=== PATIENT | male | born 1950 | race Caucasian/White ===

== ENCOUNTER 2016-11-23 14:18 | Emergency (ER) | payer MEDICARE ==
--- NOTE | 2016-11-23 14:44 | ERPHSYRPT ---
- History of Present Illness Time Seen by Provider: 11/23/16 14:44 Exam Limitations: no limitations Patient Subjective Stated Complaint: PT BROUGHT TO ED PER EMS FROM LOCAL [place]- REPORTS PT HAD FEVER OF 103 THIS AM WITH RIGHT FLANK PAIN-GIVEN TYLENOL-TEMP CURRENTLY 100.1-PT STATES THAT PAIN IS NOW GONE FROM RIGHT FLANK-DENIES N/V/D- STATES HE HAS HAD A LOT OF RECENT FALLS BUT DENIES INJURY-DENIES REBOUND TENDERNESS Triage Nursing Assessment: PT PALE WARM ET [id number] ALL QUESTIONS CORRECTLY-RESP EASY ET NONLABORED-ABD SOFT ET NONTENDER TO PALP-DENIES REBOUND TENDERNESS Physician History: The patient is a 65-year-old male brought in by EMS from a local jail where he stated that he began not feeling well when he was at physical therapy this morning. He went back to his room. The nurses took his temperature and it was around 102. He also had some epigastric right upper quadrant abdominal pain that began but went away after they gave him 2 Tylenols. He is now pain- free. He denies nausea vomiting or diarrhea. His past medical history is significant for hypertension and pulmonary hypertension. 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 Associated Symptoms: abdominal pain Allergies/Adverse Reactions: penicillin G Allergy (Intermediate, Verified 11/23/16 14:31) Sulfa (Sulfonamide Antibiotics) Allergy (Intermediate, Verified 11/23/16 14:31) Home Medications: Apixaban [Eliquis] 5 mg PO BID 11/23/16 [History] Furosemide 20 mg [Lasix 20 mg] 20 mg PO BID 11/23/16 [History] Gabapentin [Neurontin] 300 mg PO TID 11/23/16 [History] Metoprolol Succinate 50 mg [Toprol Xl 50 MG] 50 mg PO DAILY 11/23/16 [ History] Morphine Sulfate Cr 30 mg [Ms Contin 30 mg] 30 mg PO BID 11/23/16 [History ] Potassium Chloride 10 Meq Tab* [Klor Con 10 MEQ] 10 meq PO DAILY 11/23/16 [ History] Ranolazine 500 MG [Ranexa 500 MG] 500 mg PO BID 11/23/16 [History] Sertraline HCl 50 mg [Zoloft 50 mg Tablet] 50 mg PO DAILY 11/23/16 [History] Sildenafil Citrate [Sildenafil] 20 mg PO TID 11/23/16 [History] Hx Tetanus, Diphtheria Vaccination/Date Given: No Hx Influenza Vaccination/Date Given: Yes Hx Pneumococcal Vaccination/Date Given: No Immunizations Up to Date: Yes - Review of Systems Constitutional: Fever Eyes: No Symptoms Ears, Nose, & Throat: No Symptoms, No Throat Pain Respiratory: No Cough, No Dyspnea Cardiac: No Chest Pain, No Edema, No Syncope Abdominal/Gastrointestinal: Abdominal Pain Genitourinary Symptoms: No Dysuria Musculoskeletal: No Back Pain, No Neck Pain Skin: No Rash Neurological: No Dizziness, No Focal Weakness, No Sensory Changes Psychological: No Symptoms Endocrine: No Symptoms Hematologic/Lymphatic: No Symptoms Immunological/Allergic: No Symptoms All Other Systems: Reviewed and Negative - Past Medical History Pertinent Past Medical History: Yes Cardiac History: Congestive Heart Failure, Hypertension Respiratory History: COPD Psycho-Social History: Depression - Past Surgical History Past Surgical History: Yes Gastrointestinal: Appendectomy, Cholecystectomy - Social History Smoking Status: Former smoker Drug Use: none Patient Lives Alone: No - Nursing Vital Signs Nursing Vital Signs: Initial Vital Signs Temperature 100.1 F Temperature Source Oral Pulse Rate 67 Respiratory Rate 16 Blood Pressure [Right Arm] 100/56 Pain Intensity 0 - Physical Exam General Appearance: no apparent distress, alert Eye Exam: PERRL/EOMI ENT Exam: normal ENT inspection, No pharyngeal erythema, No tonsillar exudate Neck Exam: supple, full range of motion, No meningismus Respiratory Exam: normal breath sounds, lungs clear, no respiratory distress Cardiovascular/Chest Exam: normal heart sounds, regular rate/rhythm, No murmur, No edema Gastrointestinal/Abdominal Exam: soft, non tender, no distention, No tenderness Rectal Exam: not done Extremity Exam: non-tender, normal range of motion, normal inspection, normal capillary refill Neurologic Exam: alert, oriented x 3, cooperative, block layer II-XII nml as tested, normal mood/affect, sensation nml, No motor deficits Skin Exam: normal color, warm, dry, No rash SpO2 Interpretation: normal SpO2: 93 Oxygen Delivery: Nasal Cannula - CT Exams Abdomen/Pelvis CT Interpretation: Tele-radiologist Report, Pneumonia (infiltrates in lower right and left lungs per Dr Neil.) Ordered Tests: Active Orders 24 hr Category Date Time Status IV Insertion STAT Care 11/23/16 14:47 Active ABDOMEN AND PELVIS W/0 CONTRAS [CT] Stat Exams 11/23/16 16:03 Taken BMP Stat Lab 11/23/16 14:59 Completed CBC W DIFF Stat Lab 11/23/16 14:59 Completed CULTURE, THROAT Stat Lab 11/23/16 14:59 Received Lactic Acid Stat Lab 11/23/16 15:35 Completed Manual Differential NC Stat Lab 11/23/16 14:59 Completed STREP SCREEN-BETA A Stat Lab 11/23/16 14:59 Completed UA W/ MICROSCOPIC Stat Lab 11/23/16 15:45 Completed Lab/Rad Data: Laboratory Result Diagrams 11/23/16 14:59 11/23/16 14:59 Laboratory Results 11/23/16 11/23/16 11/23/16 Range/Units 15:45 15:35 14:59 WBC (4.0-10.5) K/mm3 RBC (4.1-5.6) M/mm3 Hgb (12.5-18.0) gm/dl Hct (42-50) % MCV (78-100) fl MCH (26-32) pg MCHC (32-36) g/dl RDW (11.5-14.0) % Plt Count (150-450) K/mm3 MPV (6-9.5) fl Segmented Neutrophils (36.-66.) % Band Neutrophils (0.0-2.0) % Lymphocytes (Manual) (24-44) % Differential Comment Platelet Estimate (NORMAL) Sodium (136-145) mEq/L Potassium (3.5-5.1) mEq/L Chloride (98-107) mEq/L Carbon Dioxide (21-32) mEq/L Anion Gap (5-15) MEQ/L BUN (9-20) mg/dL Creatinine (0.55-1.30) mg/dl Estimated GFR ML/MIN Glucose (70-110) MG/DL Lactic Acid 1.0 (0.4-2.0) Calcium (8.5-10.1) mg/dL Ur Collection Type CLEAN CATCH Urine Color YELLOW (YELLOW) Urine Appearance CLEAR (CLEAR) Urine pH 5.0 (5-6) Ur Specific [place] 1.020 (1.005-1.025) Urine Protein NEGATIVE (Negative) Urine Glucose (UA) NEGATIVE (NEGATIVE) mg/dL Urine Ketones NEGATIVE (NEGATIVE) Urine Nitrite NEGATIVE (NEGATIVE) Urine Bilirubin NEGATIVE (NEGATIVE) Urine Urobilinogen 0.2 (0-1) mg/dL Urine WBC (Auto) TRACE (NEGATIVE) Urine RBC (Auto) NEGATIVE (0-5) Rip/ul Urine Microscopic RBC 0-2 (0-2) /HPF Urine Microscopic WBC 2-5 (0-5) /HPF Ur Epithelial Cells RARE (FEW) /HPF Urine Bacteria RARE (NEGATIVE) /HPF Urine Mucus SLIGHT (NEGATIVE) /HPF Influenza Type A Ag NEGATIVE (NEGATIVE) Influenza Type B Ag NEGATIVE (NEGATIVE) RSV (PCR) NEGATIVE (Negative) Streptococcus Screen (Negative) Specimen Received 11/23/16 1545 11/23/16 11/23/16 11/23/16 Range/Units 14:59 14:59 14:59 WBC 27.1 H* (4.0-10.5) K/mm3 RBC 4.48 (4.1-5.6) M/mm3 Hgb 12.3 L (12.5-18.0) gm/dl Hct 39.6 L (42-50) % MCV 88.4 (78-100) fl MCH 27.4 (26-32) pg MCHC 31.1 L (32-36) g/dl RDW 16.8 H (11.5-14.0) % Plt Count 308 (150-450) K/mm3 MPV 10.6 H (6-9.5) fl Segmented Neutrophils 92 H (36.-66.) % Band Neutrophils 4 H (0.0-2.0) % Lymphocytes (Manual) 4 L (24-44) % Differential Comment NORMAL Platelet Estimate NORMAL (NORMAL) Sodium 138 (136-145) mEq/L Potassium 5.0 (3.5-5.1) mEq/L Chloride 102 (98-107) mEq/L Carbon Dioxide 30.2 (21-32) mEq/L Anion Gap 11.1 (5-15) MEQ/L BUN 14 (9-20) mg/dL Creatinine 1.02 (0.55-1.30) mg/dl Estimated GFR > 60 ML/MIN Glucose 121 H (70-110) MG/DL Lactic Acid (0.4-2.0) Calcium 8.8 (8.5-10.1) mg/dL Ur Collection Type Urine Color (YELLOW) Urine Appearance (CLEAR) Urine pH (5-6) Ur Specific [place] (1.005-1.025) Urine Protein (Negative) Urine Glucose (UA) (NEGATIVE) mg/dL Urine Ketones (NEGATIVE) Urine Nitrite (NEGATIVE) Urine Bilirubin (NEGATIVE) Urine Urobilinogen (0-1) mg/dL Urine WBC (Auto) (NEGATIVE) Urine RBC (Auto) (0-5) Rip/ul Urine Microscopic RBC (0-2) /HPF Urine Microscopic WBC (0-5) /HPF Ur Epithelial Cells (FEW) /HPF Urine Bacteria (NEGATIVE) /HPF Urine Mucus (NEGATIVE) /HPF Influenza Type A Ag (NEGATIVE) Influenza Type B Ag (NEGATIVE) RSV (PCR) (Negative) Streptococcus Screen NEGATIVE (Negative) Specimen Received - Progress Progress: unchanged Counseled pt/family regarding: rad results - Departure Time of Disposition: 17:39 Departure Disposition: Home Clinical Impression: Pneumonia Condition: Stable Critical Care Time: No Additional Instructions: You have pneumonia at the base of both lungs. You were given Rocephin 1 g by IV in the ER. Continue with Rocephin 1 g IM daily for 3 days and take azithromycin 500 mg by mouth daily for 3 days. Follow up tomorrow with your primary medical doctor.
[2016-11-23 15:04] LABS: Mean Cell Volume 88.4 fl (78-100); Mean Platelet Volume 10.6 fl (6-9.5); Platelet Count 308 K/mm3 (150-450); Red Blood Count 4.48 M/mm3 (4.1-5.6); Red Cell Distribution Width 16.8 % (11.5-14.0)
[2016-11-23 15:12] LABS: Mean Corpuscular Hemoglobin 27.4 pg (26-32); White Blood Count 27.1 K/mm3 (4.0-10.5)
[2016-11-23 15:22] LABS: ANION GAP 11.1 MEQ/L (5-15); BLOOD UREA NITROGEN 14 mg/dL (9-20); CHLORIDE 102 mEq/L (98-107); Carbon Dioxide 30.2 mEq/L (21-32); Glucose 121 MG/DL (70-110); SODIUM 138 mEq/L (136-145)
[2016-11-23 15:26] LABS: BAND 4 % (0.0-2.0); Total Cells Counted 100
[2016-11-23 15:27] LABS: Platelet Estimate NORMAL (NORMAL)
[2016-11-23 15:48] LABS: ADD URINE CULTURE? NO (NO); Bacteria RARE /HPF (NEGATIVE); COMPLETE URINE MICROSCOPIC? YES; Collection Type CLEAN CATCH; Epithelial Cells RARE /HPF (FEW); Mucus SLIGHT /HPF (NEGATIVE)
[2016-11-23] MEDS ORDERED: ROCEPHIN 1 Gm-D5w 50 ml Bag** 1 G/50 ML IVPB IV ONE ×2 (17:39→17:44)
[2016-11-23 18:08] VITALS: BP 130/70; PULSE 97; O2SAT 96
--- NOTE | 2016-11-23 20:49 | XRAY ---
Indication: Right flank pain. Elevated WBC. Fever. Multiple contiguous axial images obtained through the abdomen and pelvis without contrast as ordered. Comparison: None Lung bases demonstrates bibasilar consolidating airspace opacities, right greater than left concerning for aspiration. No large effusion. Heart is not enlarged. Small anterior pericardial effusion/thickening. Noncontrasted stomach and bowel loops appear nonobstructed. Moderate diffuse scattered colonic fecal debris throughout. Normal appendix. No free fluid/air. Multiple hepatic cysts, largest in the right lobe measuring 5.5 cm. Previous cholecystectomy. Remaining pancreas, spleen, adrenal glands, kidneys, ureters, and bladder appear unremarkable for noncontrast exam. Mild aortoiliac calcifications without AAA. Osseous structures intact with mild degenerative changes throughout the spine greatest at the lumbosacral junction. Small fatty umbilical and left inguinal hernias. Impression: 1. Bibasilar pulmonary consolidating airspace opacities, right greater than left. Rule out aspiration pneumonia. 2. Fecal stasis without obstruction. 3. Incidental hepatic cysts, fatty umbilical hernia, and fatty left inguinal hernia. CTDI 22.61
== END 2016-11-23 18:19 ==
LOC: ED 14:18
DX: J18.9 Pneumonia, unspecified organism (principal); R50.9 Fever, unspecified; R10.9 Unspecified abdominal pain
CPT/HCPCS: 36415; 74176; 80048; 81000; 83605; 85025; 87040; 87070; 87430; 87631; 99284; J0696